=== PATIENT | female | born 1995 | race Caucasian/White ===

== ENCOUNTER 2020-06-01 04:59 | Observation (INO) ==
[2020-06-01 05:18] LABS: Bacteria,Urine Few per hpf (None-Few); Bilirubin,Urine Negative (Negative); Blood,Urine Small (Negative); Clarity,Urine Turbid (Clear); Color,Urine Yellow (Yellow); Glucose,Urine (UA) Normal (Normal); Ketones,Urine Trace mg/dL (Negative); Leukocyte Esterase,Urine Large (Negative); Mucus,Urine Few per lpf (None-Few); Nitrite,Urine Negative (Negative); Protein,Urine 100 mg/dL (Neg-Trace); Specific Gravity,Urine 1.011 (1.010-1.025); Squamous Epithelial Cell,Urine Few per hpf (None-Few); Urobilinogen,Urine Normal (Normal); WBC,Urine TNTC per hpf (0-3)
== END 2020-06-01 08:21 | disposition home or self-care (01) ==
LOC: 1NENULAB
PROVIDERS: ADMIT Obstetrics & Gynecology; ATTEND Obstetrics & Gynecology

== ENCOUNTER 2020-06-02 11:15 | Inpatient (IN) ==
[2020-06-02] MEDS ORDERED: Azithromycin 500 MG in 0.9 % Sodium Chloride 250 ML IVPB ONE (11:32)
[2020-06-02] MEDS ORDERED: *HR* Nalbuphine 10 MG/ML AMPUL IV PRN (11:32)
[2020-06-02] MEDS ORDERED: Naloxone 0.4 MG/ML INJ IVP PRN (11:32)
[2020-06-02] MEDS ORDERED: Ondansetron 4 MG/2 ML VIAL IVP PRN (11:32)
[2020-06-02] MEDS ORDERED: Famotidine 20 MG/2 ML VIAL IVP PRN (11:32)
[2020-06-02] MEDS ORDERED: Metoclopramide 10 MG/2 ML VIAL IVP PRN (11:32)
[2020-06-02] MEDS ORDERED: Lidocaine 1% 20 ML MDV INFILT PRN (11:32)
[2020-06-02] MEDS ORDERED: *HR* FentaNYL (PF) 100 MCG/2 ML VIAL IVP PRN (11:32)
[2020-06-02] MEDS: Ringers Solution, Lactated 1,000 ML IVC SCH ×2 (12:07→13:50)
[2020-06-02 12:19] LABS: Mean Corpuscular HGB Conc 32.1 g/dL (31.6-35.5); Red Cell Distribution Width 14.3 % (11.5-14.5); Segmented Neutrophils % 84.6 %
[2020-06-02 12:21] LABS: Basophils # 0.1 K/mcL (0.0-0.2); Basophils % 0.2 %; Eosinophils # 0.1 K/mcL (0.0-0.6); Eosinophils % 0.3 %; Hematocrit 41.7 % (35.3-44.9); Hemoglobin 13.4 g/dL (11.5-15.4); Immature Granulocytes % 1.1 % (0-4); Immature Platelets 9.7 % (1.1-6.1); Lymphocytes # 0.8 K/mcL (0.6-4.6); Lymphocytes % 3.3 %; Mean Corpuscular Volume 90.3 fL (83.0-100.0); Mean Platelet Volume 11.6 fL (9.4-12.4); Monocytes # 2.5 K/mcL (0.0-1.3); Monocytes % 10.5 %; Neutrophils # 19.8 K/mcL (1.6-8.9); Platelet Count 254 K/mcL (140-400); Red Blood Count 4.62 M/mcL (3.82-4.97); White Blood Count 23.4 K/mcL (4.3-11.1)
[2020-06-02] MEDS ORDERED: EPHEDrine 50 MG/ML VIAL IVP PRN (12:46)
[2020-06-02] MEDS ORDERED: Epidural Premix (fent/bupiv) 110 ML EP SCH (13:00)
[2020-06-02 13:32] LABS: Amphetamine Screen,Urine Negative ng/mL (Cutoff=1000); Barbiturate Screen,Urine Negative ng/mL (Cutoff=200); Benzodiazepines Screen,Urine Negative ng/mL (Cutoff=200); Cannabinoid Screen,Urine Negative ng/mL (Cutoff = 50); Cocaine Screen,Urine Negative ng/mL (Cutoff= 300); Opiate Screen,Urine Negative ng/mL (Cutoff=300); Phencyclidine Screen,Urine Negative ng/mL (Cutoff=25)
[2020-06-02] MEDS: CeFAZolin 2 GM/120 ML BAG IVPB SCH (13:47)
[2020-06-02] MEDS ORDERED: Ropivacaine/PF 0.2% 20 ML VIAL ONE (16:08)
[2020-06-02] MEDS ORDERED: Acetaminophen 325 MG TABLET PO ONE (16:39)
[2020-06-02] MEDS ORDERED: Oxytocin 20 units/ LR 1000 mL 20 UNIT/1,000 ML BAG IVC ONE (17:46)
[2020-06-02] MEDS ORDERED: Lanolin 7 G OINT...G. TP PRN (19:10)
[2020-06-02] MEDS ORDERED: Benzocaine/Menthol 56 GM AEROSOL SPRAY TP PRN (19:10)
[2020-06-02] MEDS ORDERED: Acetaminophen 325 MG TABLET PO PRN (19:10)
[2020-06-02] MEDS ORDERED: *HR* HYDROcodone/Acet 5/325 mg TABLET PO PRN (19:10)
[2020-06-02] MEDS: Ibuprofen 600 MG TABLET PO PRN (20:06)
[2020-06-02] MEDS: Oxytocin 20 units/ LR 1000 mL 20 UNIT/1,000 ML BAG IVC SCH (20:07)
[2020-06-02] MEDS: ceFAZolin 2,000 MG in 0.9 % Sodium Chloride 100 ML IVPB SCH (22:04)
[2020-06-03] MEDS: Ibuprofen 600 MG TABLET PO PRN ×3 (02:34→17:43)
[2020-06-03 05:00] LABS: Basophils % 0.2 %; Eosinophils % 0.1 %; Hematocrit 31.9 % (35.3-44.9); Lymphocytes # 1.4 K/mcL (0.6-4.6); Lymphocytes % 8.4 %; Mean Corpuscular HGB Conc 32.6 g/dL (31.6-35.5); Mean Corpuscular Hemoglobin 29.1 pg (28.0-33.3); Mean Corpuscular Volume 89.4 fL (83.0-100.0); Mean Platelet Volume 11.1 fL (9.4-12.4); Monocytes # 1.9 K/mcL (0.0-1.3); Monocytes % 11.6 %; Neutrophils # 12.7 K/mcL (1.6-8.9); Platelet Count 193 K/mcL (140-400); Red Blood Count 3.57 M/mcL (3.82-4.97); Red Cell Distribution Width 14.3 % (11.5-14.5); Segmented Neutrophils % 78.7 %; White Blood Count 16.1 K/mcL (4.3-11.1)
[2020-06-03 05:02] LABS: Hemoglobin 10.4 g/dL (11.5-15.4)
[2020-06-03] MEDS: ceFAZolin 2,000 MG in 0.9 % Sodium Chloride 100 ML IVPB SCH (05:44)
[2020-06-03] MEDS: Oxytocin 20 units/ LR 1000 mL 20 UNIT/1,000 ML BAG IVC SCH (05:46)
[2020-06-03] MEDS ORDERED: Prenatal Vit/FA 1 EACH TABLET PO SCH (09:00)
[2020-06-03] MEDS: CeFAZolin 2 GM/120 ML BAG IVPB SCH (14:25)
[2020-06-03 16:23] VITALS: BP 117/76
== END 2020-06-03 18:28 | disposition home or self-care (01) | DRG 806 ==
LOC: 1NENULAB → OBSVTOIN 11:15 → 1NENUOBS 20:25
PROVIDERS: ADMIT Obstetrics & Gynecology; ATTEND Obstetrics & Gynecology